=== PATIENT | female | born 1995 | race Caucasian/White ===

== ENCOUNTER 2017-08-07 22:53 | Emergency (ER) | payer BC ==
[2017-08-08 00:58] LABS: Urine Bacteria Absent (Absent); Urine Bilirubin Negative (Negative); Urine Glucose Negative (Negative); Urine Nitrite Negative (Negative)
[2017-08-08 02:09] LABS: Hematocrit 43 % (35-47); Hemoglobin 14.3 g/dl (12.0-16.0); Mean Corpuscular HGB Conc 34 g/dl (31-36); Mean Corpuscular Hemoglobin 29 pg (27-31); Mean Corpuscular Volume 86 fL (80-97); Mean Platelet Volume 7 um3 (7.4-10.4); Red Blood Count 4.94 10^6/ul (4.0-5.4); Red Cell Distribution Width 13 % (10.5-15); White Blood Count 13.1 10^3/ul (3.5-10.8)
[2017-08-08 02:23] LABS: Albumin 4.2 g/dL (3.2-5.2); BUN/Creatinine Ratio 17.6 (8-20); EGFR African American 140.5 (>60); EGFR Non-African American 109.2 (>60); Globulin 2.7 g/dL (2-4); Potassium 3.7 mmol/L (3.5-5.0); Total Bilirubin 0.5 mg/dL (0.2-1.0); Total Protein 6.9 g/dL (6.4-8.9)
--- NOTE | 2017-08-08 03:16 | ED ---
John Ba Tiffany scribtanya for Gino Valenzuela on 08/08/17 at 0023 . Abdominal Pain/Female - HPI Summary HPI Summary: This patient is a 22 year old F presenting to [facility] accompanied by with a chief complaint of abdominal pain since a month ago, worse since four days ago. The patient rates the pain 5/10 in severity. Symptoms aggravated by nothing. Symptoms alleviated by nothing. Patient reports nausea and lightheadedness. Patient denies dysuria and vomiting. 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 She was diagnosed with bacterial vaginosis and is taking antibiotics. - History of Current Complaint Chief Complaint: EDAbdPain Stated Complaint: ABD PAIN Time Seen by Provider: 08/08/17 00:08 Hx Obtained From: Patient Onset/Duration: Lasting Weeks - 4 weeks, Still Present, Worse Since - 4 days ago Severity Currently: Moderate Pain Intensity: 5 Pain Scale Used: 0-10 Numeric Aggravating Factor(s): Nothing Alleviating Factor(s): Nothing Associated Signs and Symptoms: Positive: Other: - nausea and lightheadedness; NEGATIVE: dysuria and vomiting PMH/Surg Hx/FS Hx/Imm Hx Previously Healthy: Yes Endocrine/Hematology History: Denies: Hx Diabetes Opthamlomology History: Denies: Hx Legally Blind EENT History: Denies: Hx Deafness Infectious Disease History: No Infectious Disease History: Denies: Traveled Outside the [place] in Last 30 Days - Family History Known Family History: Positive: Other - Pt denies knowledge of abdominal family history - Social History Alcohol Use: None Hx Substance Use: No Substance Use Type: Reports: None Hx Tobacco Use: No Smoking Status (MU): Never Smoked Tobacco Review of Systems Positive: Abdominal Pain, Nausea. Negative: Vomiting Negative: dysuria Neurological: Other - Lightheadedness All Other Systems Reviewed And Are Negative: Yes Physical Exam - Summary Physical Exam Summary: Appearance: Well appearing, no pain distress Skin: warm, dry, reflects adequate perfusion Head/face: normal Eyes: EOMI, B[place] ENT: normal Neck: supple, non-tender Respiratory: CTA, breath sounds present Cardiovascular: RRR, pulses symmetrical Abdomen: tenderness in the LLQ Bowel: present Musculoskeletal: normal, strength/ROM intact Neuro: normal, sensory motor intact, A&Ox3 Triage Information Reviewed: Yes Vital Signs On Initial Exam: Initial Vitals Temp Pulse Resp BP Pulse Ox 98.8 F 76 18 124/77 98 08/07/17 22:56 08/07/17 22:56 08/07/17 22:56 08/07/17 22:56 08/07/17 22:56 Vital Signs Reviewed: Yes Diagnostics - Vital Signs Vital Signs Temp Pulse Resp BP Pulse Ox 08/07/17 22:56 98.8 F 76 18 124/77 98 - Laboratory Lab Results: Lab Results 08/08/17 08/08/17 08/08/17 Range/Units 00:30 01:37 01:37 WBC 13.1 H (3.5-10.8) 10^3/ul RBC 4.94 (4.0-5.4) 10^6/ul Hgb 14.3 (12.0-16.0) g/dl Hct 43 (35-47) % MCV 86 (80-97) fL MCH 29 (27-31) pg MCHC 34 (31-36) g/dl RDW 13 (10.5-15) % Plt Count 264 (150-450) 10^3/ul MPV 7 L (7.4-10.4) um3 Neut % (Auto) 81.4 (38-83) % Lymph % (Auto) 10.1 L (25-47) % [place] % (Auto) 6.5 (1-9) % Eos % (Auto) 1.5 (0-6) % Baso % (Auto) 0.5 (0-2) % Absolute Neuts (auto) 10.7 H (1.5-7.7) 10^3/ul Absolute Lymphs (auto) 1.3 (1.0-4.8) 10^3/ul Absolute Monos (auto) 0.9 H (0-0.8) 10^3/ul Absolute Eos (auto) 0.2 (0-0.6) 10^3/ul Absolute Basos (auto) 0.1 (0-0.2) 10^3/ul Absolute Nucleated RBC 0 10^3/ul Nucleated RBC % 0 Sodium 136 (133-145) mmol/L Potassium 3.7 (3.5-5.0) mmol/L Chloride 107 (101-111) mmol/L Carbon Dioxide 21 L (22-32) mmol/L Anion Gap 8 (2-11) mmol/L BUN 12 (6-24) mg/dL Creatinine 0.68 (0.51-0.95) mg/dL Est GFR ( Amer) 140.5 (>60) Est GFR (Non-Af Amer) 109.2 (>60) BUN/Creatinine Ratio 17.6 (8-20) Glucose 83 (70-100) mg/dL Calcium 9.0 (8.6-10.3) mg/dL Total Bilirubin 0.50 (0.2-1.0) mg/dL AST 13 (13-39) U/L ALT 9 (7-52) U/L Alkaline Phosphatase 46 (34-104) U/L Total Protein 6.9 (6.4-8.9) g/dL Albumin 4.2 (3.2-5.2) g/dL Globulin 2.7 (2-4) g/dL Albumin/Globulin Ratio 1.6 (1-3) Lipase 16 (11.0-82.0) U/L Beta HCG, Quant 0.76 mIU/mL Urine Color Straw Urine Appearance Clear Urine pH 6.0 (5-9) Ur Specific [place] 1.005 L (1.010-1.030) Urine Protein Negative (Negative) Urine Ketones Negative (Negative) Urine Blood 1+ H (Negative) Urine Nitrate Negative (Negative) Urine Bilirubin Negative (Negative) Urine Urobilinogen Negative (Negative) Ur Leukocyte Esterase Trace H (Negative) Urine WBC (Auto) Trace(0-5/hpf) (Absent) Urine RBC (Auto) Trace(0-2/hpf) (Absent) Ur Squamous Epith Cells Present H (Absent) Urine Bacteria Absent (Absent) Urine Glucose Negative (Negative) Result Diagrams: 08/08/17 01:37 08/08/17 01:37 Lab Statement: Any lab studies that have been ordered have been reviewed, and results considered in the medical decision making process. - CT Abd/Pel CT Interpretation Completed By: Radiologist - There is no bowel obstruction, free air, or free fluid. Negative for diverticulitis or colitis. Large amount of stool in the colon. No urinary tract stone or obstruction. No acute abnormalities of the liver, spleen, pancreas, or adrenal glands. No acute abnormalities are identified. Note made of IUD in the uterus. ED physician has reviewed this radiology report. Abdominal Pain Fem Course/Dx - Course Course Of Treatment: This patient is a 22 year old F presenting to [facility] accompanied by with a chief complaint of abdominal pain since a month ago, worse since four days ago. CT Abd/Pel reveals, per radiologist, There is no bowel obstruction, free air, or free fluid. Negative for diverticulitis or colitis. Large amount of stool in the colon. No urinary tract stone or obstruction. No acute abnormalities of the liver, spleen, pancreas, or adrenal glands. No acute abnormalities are identified. Note made of IUD in the uterus. Bloodwork/UA obtained. Patient will be discharged with prescription for Motrin and follow up from PCP. The patient is agreeable with this plan. - Diagnoses Differential Diagnosis: Positive: Constipation, Diverticulitis, Peptic Ulcer Disease, Renal Colic, Urinary Tract Infection Provider Diagnoses: Nonspecific abdominal pain, Constipation Discharge - Discharge Plan Condition: Stable Disposition: HOME Prescriptions: Ibuprofen TAB* [Motrin TAB* 600 MG] 600 mg PO Q8H PRN #20 tab MDD 3 PRN Reason: Pain Patient Education Materials: Constipation (ED), Abdominal Pain (ED) Referrals: Non Staff,Doctor [Primary Care Provider] - 3 Days Additional Instructions: Follow up with your primary care provider in 3 days. Return to the Emergency Room if current symptoms worsen or if new symptoms develop. The documentation as recorded by the John infante Tiffany accurately reflects the service I personally performed and the decisions made by Nicolas sebastian Emmanuel.
[2017-08-08 03:20] VITALS: BP 122/61
--- NOTE | 2017-08-08 13:23 | RAD ---
Indication: Left renal colic. CT of the abdomen and pelvis was performed without oral or IV contrast administration. Coronal and sagittal reconstructed images were obtained. Lung bases demonstrate no pleural fluid, nodules or masses. Heart is of normal size without evidence of pericardial effusion. Liver is normal in size. No focal lesions or intrahepatic ductal dilatation is noted. The gallbladder demonstrates no calcified gallstones. No pericholecystic fluid or wall thickening is identified. The pancreas demonstrates no mass or pancreatic ductal dilatation. The spleen is normal in size. No adrenal lesions are noted. The kidneys demonstrate no hydronephrosis in either kidney. The urinary bladder is unremarkable. No hernias are identified. CT of the pelvis demonstrates IUD in place. Colon is filled with stool. No dilated loops of bowel are noted. No hernias are noted. Aorta and inferior vena cava are unremarkable. No retroperitoneal adenopathy is present. No dilated loops of bowel are noted. IMPRESSION: No abnormal masses or fluid collections are noted. No evidence of obstructive uropathy is noted.
== END 2017-08-08 03:20 | disposition home or self-care (01) ==
LOC: ED 22:53
DX: R10.9 Unspecified abdominal pain (principal); K59.00 Constipation, unspecified
CPT/HCPCS: 36415; 74176; 80053; 81003; 81015; 83690; 84702; 85025; 87086; 99282